=== PATIENT | female | born 1965 | race Caucasian/White ===

== ENCOUNTER 2021-10-14 13:47 | Inpatient (IN) | payer OTHER ==
[~2021-10-14] VITALS: Ht 165.1 cm; Wt 158.4 kg
--- NOTE | 2021-10-14 19:28 | NUR ---
PATIENT ARRIVED TO ROOM 338 PER W/C ACCOMPANIED BY TRANSPORT PLAS[facility] NURSE. PATIENT'S PRESENT ON ADMISSION TO ROOM. DR SCHUSTER PRESENT TO EXAMINE PATIENT.
[2021-10-14] MEDS ORDERED: ROXICODONE 55 MG/TAB PO (19:50)
[2021-10-14] MEDS ORDERED: NORVASC2.5 MG PO (19:50)
[2021-10-14] MEDS ORDERED: KEPPRA 500MG500 MG PO (19:50)
[2021-10-14] MEDS ORDERED: ARTIFICIAL TEAR15 M7 OP (19:51)
[2021-10-14] MEDS ORDERED: PROTONIX 40MG T40 MG PO (19:52)
[2021-10-14] MEDS ORDERED: ZOFRAN ODT4 MG PO (19:52)
[2021-10-14] MEDS ORDERED: MELATONIN5 M1 SL (19:52)
[2021-10-14] MEDS ORDERED: GLUCOPHAGE500 MG/TAB PO (19:52)
[2021-10-14 19:55] VITALS: BP 138/71; PULSE 57; TEMP 98.9
--- NOTE | 2021-10-14 22:56 | NUR ---
PATIENT ADMITS TO DIAGNOSIS OF SLEEP APNEA IN PAST. ADMITS TO DIAGNOSIS OF PREDIABETES AND CHECKING HER BLOOD SUGARS
--- NOTE | 2021-10-15 05:33 | NUR ---
Patient sleeping in recliner. Patients blood glucose was taken by this nurse and read 79. This nurse suggested that she drink juice and eat some peanut butter to combat the lower blood sugar. Patient requested grape juice despite saying that "things still taste funny" since her procedure, she denied anything to eat. Patient is tolerating oral fluids well. This nurse still offered peanut butter and crackers to the patient. Patient has no complaints at this time. Call light within reach.
[2021-10-15 05:42] VITALS: BP 115/64; PULSE 68; TEMP 97.8
--- NOTE | 2021-10-15 06:22 | NUR ---
ATTEMPTED TO INFORMED DR TANNER OF HOSPITALIST CONSULT FOR MEDICAL MANAGEMENT PER DR SCHUSTER WITH DR TANNER RECOMMENDING CALLING [facility]LEVEL CEASAR OF HOSPITALIST CONSULT. NO FURTHER ORDERS GIVEN.
--- NOTE | 2021-10-15 07:09 | NUR ---
CHANGE OF SHIFT REPORT GIVEN TO DAY SHIFT ANNETTE HURTADO.
--- NOTE | 2021-10-15 09:21 | NUR ---
Patient was up in recliner and c/o pain in head, back, shoulder, neck and mouth d/t the romeo in her head. Patient stated pain was 10/10 and this nurse told her she would give pain medication with morning meds. Call light and bedside table are within reach. Will continue to monitor patient throughout shift.
--- NOTE | 2021-10-15 10:26 | NUR ---
SW met with patient to complete intake. Patient states that she lives in [facility] with her Stevo [phone]. Patient provides that he is also appointed as her DPOA/HC. Patient states that she does not utilize a walker, but states she would probably benefit in obtaining one before she goes back to her home. Patient states that her PCP is Dr. Rodríguez and her pharmacy is [facility]. Patient provides that her plan is to return to her home upon DC and has no concerns or questions in that regards. SW will continue to follow. DC plan: home
[2021-10-15 17:24] VITALS: BP 135/72; PULSE 79; TEMP 97.2
--- NOTE | 2021-10-16 02:21 | NUR ---
PATIENT DOING WELL TONIGHT. ALERT AND ORIENTED. C/O MODERATE BACK AND HEAD PAIN BUT DENIES NEEDS FOR PAIN MEDS WHEN ASKED. AMBULATED TO BATHROOM WITH WALKER AND LAYING IN BED. CALL LIGHT WITHIN REACH.
[2021-10-16 05:04] VITALS: BP 110/62; PULSE 88; TEMP 97.7
--- NOTE | 2021-10-16 06:59 | NUR ---
Patient sleeping comfortably in recliner. Patient stated she did not order breakfast this morning because her is bringing her lunch. This nurse educated the patient on the importance of eating because of her diabetes. Patient was not receptive of the suggestion. Call light and bedside table are within reach. Will continue to monitor patient throughout shift.
--- NOTE | 2021-10-16 09:07 | NUR ---
This nurse dropped medication and to pull another oxycodone. Unable to find.
--- NOTE | 2021-10-16 11:54 | NUR ---
Patient's is at bedside and brought lunch. Discussed with about getting her to eat more and her blood glucose.
[2021-10-16 18:00] VITALS: BP 128/64; PULSE 90; TEMP 98
--- NOTE | 2021-10-16 19:10 | NUR ---
RECEIVED CHANGE OF SHIFT REPORT FROM DAY SHIFT RN.
--- NOTE | 2021-10-17 00:19 | NUR ---
PATIENT SLEEPIN WHILE UP IN CHAIR. STATES SHE MOSTLY SLEEPS SITTING IN HER RECLINER AT HOME. BREATHING NONLABORED, EXIT ALARM ON WITH CALL LIGHT WITHIN RECEACH.
[2021-10-17 05:27] VITALS: BP 121/70; PULSE 96; TEMP 98.2
--- NOTE | 2021-10-17 07:07 | NUR ---
CHANGE OF SHIFT REPORT GIVEN TO DAY SHIFT RNLALO.
--- NOTE | 2021-10-17 08:49 | NUR ---
RN WENT TO GIVE PATIENT MEDICATIONS, PATIENT SITTING UP IN CHAIR. PATIENT REPORTS SHE DID NOT SLEEP WELL LAST NIGHT AND HAD RESTLESS LEGS. PATIENT REPORTS SHE IS NOT FEELING WELL AND HAS HEADACHE/PAIN TO THE RIGHT ANABAPTIST AREA. PATIENT WAS GIVEN PAIN MEDICATION PRIOR TO HER PT IN ABOUT AN HOUR AND ASSISTED BACK TO BED TO REST TO ENSURE SHE IS READY FOR THERAPY. PATIENT REMINDED THAT SHE HAS PT IN ABOUT AN HOUR AND IS ALSO DUE TO SHOWER LATER TODAY WITH OT.
--- NOTE | 2021-10-17 14:15 | NUR ---
Admission QIM scores were reviewed by the team. Code of 5 chosen for eating was determined by team discussion to be the most usual performance for this patient during the assessment period. Code of 4 chosen for oral hygiene was determined by team discussion to be the most usual performance for this patient during the assessment period. Code of 3 chosen for toilet hygiene was determined by team discussion to be the most usual performance for this patient during the assessment period. Code of 2 chosen for shower/bathe self was determined by team discussion to be the most usual performance before interventions for this patient during the assessment period. Code of 3 chosen for upper body dressing was determined by team discussion to be the most usual performance before interventions for this patient during the assessment period. Code of 2 chosen for lower body dressing was determined by team discussion to be the most usual performance for this patient during the assessment period. Code of 4 chosen for sit to lying was determined by team discussion to be the most usual performance before interventions for this patient during the assessment period. Code of 88 chosen for lying to sitting on side of bed was determined by team discussion to be the most usual performance for this patient during the assessment period. Code of 88 for car transfer was determined by team discussion to be the most usual performance before interventions for this patient during the assessment period. Code of 88 chosen for walk 10 feet was determined by team discussion to be the most usual performance for this patient during the assessment period. Code of 88 chosen for walk 50 feet w/ 2 turns was determined by team discussion to be the most usual performance for this patient during the assessment period.--Sindhu Christian,
[2021-10-17 15:59] VITALS: BP 129/57; PULSE 86; TEMP 97.8
--- NOTE | 2021-10-17 16:06 | NUR ---
Linux Network Engineer met with patient to follow up from the weekend. Patient states she had a bad weekend, but was doing better today. SW discussed a family meeting with patient who only wants to include her , Stevo. SW contacted Stevo and scheduled the meeting for 10/19/21 at 1320.
--- NOTE | 2021-10-17 18:05 | NUR ---
PATIENT IS CURRENTLY RESTING IN CHAIR. PATIENT ATE MAJORITY OF HER DINNER WHICH IS A VAST IMPROVEMENT FROM THIS MORNING. PATIENT HAS BEEN COMPLAINING OF NOT FEELING WELL ALL DAY BUT HAS BEEN PUSHING HERSELF TO WORK WITH THERAPY AND SHE DID TAKE A SHOWER WITH OT WELL. PATIENT CONTINUES TO COMPLAIN OF HEADACHE/BLURRY VISION. PATIENT HAS BEEN GIVEN PAIN MEDICATION A FEW TIMES BUT HAS ALSO REFUSED IT SEVERAL TIMES, STATING "MY PAIN ISN'T THAT BAD AT THE MOMENT". PATIENT HAS BEEN ENCOURAGED TO WIPE SELF WHEN USING THE REST ROOM, EVEN IF IT TAKES LONGER AND TO DO THINGS FOR HERSELF SO THAT SHE IS ABLE TO GO HOME.
--- NOTE | 2021-10-17 22:38 | NUR ---
Received report from day shift. Patient here post resection/craniotomy. Patient alert and oriented. VSS. Assessment performed. Patient c/o headache, denies need for medication for pain. Patient requested to sleep in chair, states it helps her sleep better. Patient given PM meds. Patient resting in chair with call light near.
--- NOTE | 2021-10-18 03:46 | NUR ---
Patient awoke in pain rating it 7/10. Patient requested pain medication. Administered oxy. Will continue to monitor.
[2021-10-18 05:38] VITALS: BP 141/67; PULSE 94; TEMP 97.6
--- NOTE | 2021-10-18 06:07 | NUR ---
Patient up throughout the night complaining of aches and pains throughout her body. Patient was given pain medication and transferred to the bed and chair several times. Patient was unable to obtain good sleep. Will pass report on to day shift nurse.
[2021-10-18 16:38] VITALS: BP 132/69; PULSE 94; TEMP 98.3
--- NOTE | 2021-10-18 21:00 | NUR ---
Pt. sitting up in chair at this time. Pt. is A&OX3, assessment complete. [place] to scalp incision intact. Pt. reports headache pain at a 4 on pain scale, gave pain meds per orders. Pt. denies further needs, call light within reach. Chair alarm on.
[2021-10-19 05:39] VITALS: BP 132/73; PULSE 92; TEMP 98.5
--- NOTE | 2021-10-19 07:43 | NUR ---
REPORT RECEIVED FROM ANIMAL PARK CODE ENFORCEMENT OFFICER RN KIMBERLI. PATIENT RESTING COMFORTABLY IN BEDSIDE CHAIR
--- NOTE | 2021-10-19 11:02 | NUR ---
Head CT rescheduled for 11/01/21 at 10:00 with [facility] Neurosurgery ([place] location)
[2021-10-19 12:02] VITALS: BP 137/80; PULSE 87
--- NOTE | 2021-10-19 13:39 | NUR ---
Stacker Driver and SW student participated in family meeting which included patient's , Stevo by phone. MARIA ISABEL Manley Director opened the meeting and PT/OT/ST reviewed patient's progress. Patient appeared to be drowsy during the meeting, however stated that today is the day she is going to get to the bathroom and have a bowel movement. SW advised patient and Stevo that tentative discharge date is set for Sunday10/28/21 and recommendations for services will be decided closer to discharge. SW provided copy of team conference notes to patient.
[2021-10-19 17:48] VITALS: BP 130/73; PULSE 97; TEMP 97
--- NOTE | 2021-10-19 19:10 | NUR ---
RECEIVED CHANGE OF SHIFT REPORT FROM DAY SHIFT RN.
--- NOTE | 2021-10-19 21:30 | NUR ---
REFUSED SENOKOT. EXPRESSED THAT SHE IS ANGRY/UPSET "NOTHING IS WORKING" REFERRING TO NOT HAVING BM SINCE ADMIT ON 10/14. REPORTS APPETITE IS STILL NOT NORMAL, REPORTS "NOTHING TASTES GOOD". REPORTS THAT SHE CONTINUES TO DRINK GLUCERNA WHEN IT IS BROUGHT TO HER. REPORTS SHE IS "ALWAYS TIRED... I HURT EVERYWHERE... I'M HAVING STOMACH CRAMPS..." ADMITS TO PASSING FLATUS AND DENIES FEELING BLOATED.
--- NOTE | 2021-10-20 02:18 | NUR ---
AWAKING FROM SLEEPING IN CHAIR, UP TO BATHROOM, WANTING TO "SIT ON TOILET" ATTEMPTING TO PASS BM "IF ABLE".
[2021-10-20 04:55] VITALS: BP 122/73; PULSE 95; TEMP 98.1
--- NOTE | 2021-10-20 07:17 | NUR ---
CHANGE OF SHIFT REPORT GIVEN TO DAY SHIFT RNODALYS.
--- NOTE | 2021-10-20 07:41 | NUR ---
Shift report recevied from night assistant RN. Patient resting in chair at bedside. Call light is within her reach
--- NOTE | 2021-10-20 09:27 | NUR ---
Called [facility] to cancel and reschedule upcoming teleheath on 10/21 with Neuro and to clarify when scalp romeo should be removed. Neuro D/C Instructions state "Rehab Physician to remove stapes on 10/21/21" but thinks that romeo are to be removed on 10/25/21. Left a voice mail for Nurse Pemberton to return my phone call
--- NOTE | 2021-10-20 10:05 | NUR ---
Callback received from Nurse Pemberton at [facility] Neuro. Okay to remove romeo tomorrow. Telehealth appt scheduled for 10/21/21 has been canceled. Per Nurse Pemberton, pt. does not need to reschedule telehealth since romeo will be removed by IPR Physician tomorrow. Pt. needs to keep CT appt for 11/01/21 and keep f/u with Dr. Nash on 11/07/21
--- NOTE | 2021-10-20 14:39 | NUR ---
Admission QIM scores were reviewed by the team. Code of 3 chosen for oral hygiene was determined by team discussion to be the most usual performance for this patient during the assessment period. Code of 3 chosen for toilet hygiene was determined by team discussion to be the most usual performance for this patient during the assessment period. Code of 3 chosen for toileting transfers was determined by team discussion to be the most usual performance for this patient during the assessment period. Code of 3 chosen for shower/bathe self was determined by team discussion to be the most usual performance before interventions for this patient during the assessment period. Code of 3 chosen for upper body dressing was determined by team discussion to be the most usual performance before interventions for this patient during the assessment period. Code of 2 chosen for lower body dressing was determined by team discussion to be the most usual performance for this patient during the assessment period. Code of 3 chosen for sit to lying was determined by team discussion to be the most usual performance before interventions for this patient during the assessment period. Code of 2 chosen for lying to sitting on side of bed was determined by team discussion to be the most usual performance for this patient during the assessment period. Code of 3 for sit to stand was determined by team discussion to be the most usual performance for this patient during the assessment period. Code of 3 for chair/bed to chair transfers was determined by team discussion to be the most usual performance for this patient during the assessment period.--PD Uday
[2021-10-20 17:26] VITALS: BP 115/76; PULSE 95; TEMP 99.4
--- NOTE | 2021-10-20 19:30 | NUR ---
PT GETTING INTO BED. C/O HEADACHE LEVEL 8. SEE MAR FOR OXYCODONE GIVEN. NO CHANGE IN NEURO STATUS. PT MORBIDLY OBESE. NEEDS ENC FOR SELF CARES. FRONTAL HEAD INCISION WITH KENZIE CDI. CALL LIGHT IN REACH. BED ALARM SET.
--- NOTE | 2021-10-20 21:16 | NUR ---
PT TO BR THEN TO RECLINER. TELLING VERY DISCONNECTED STORIES ABOUT MOTHER AND COUSIN. PT RELATES SHE STILL HAS CLOUDY VISION. SEE MAR FOR EYE DROPS GIVEN.
--- NOTE | 2021-10-20 23:39 | NUR ---
PT SITTING UP IN RECLINER. C/O H/A FRONTAL. SEE MAR FOR OXYCODONE GIVEN.
--- NOTE | 2021-10-21 03:42 | NUR ---
PT AWAKE. AMB TO BR WITH WALKER WITH CGA. BACK TO BED. C/O H/A LEVEL 10 AFTER COUGHING. SEE MAR FOR OXYCODONE GIVEN. REPOSITIONED FOR COMFORT. CALL LIGHT IN REACH. BED ALARM SET.
[2021-10-21 03:48] VITALS: BP 138/91; PULSE 103; TEMP 99
[2021-10-21 12:56] LABS: BASO % 0.5 % (0.0-2.0); EOS % 0.7 % (0.0-4.0); GRAN # 2.4 K/mm3 (1.4-6.5); GRAN % 58.7 % (42.2-75.2); HEMOGLOBIN 11.3 g/dl (12.5-16.0); LYMPH # 1.3 K/mm3 (1.2-3.4); LYMPH % 30.7 % (20.0-51.0); MEAN CELL VOLUME 92 fl (80.0-100.0); MEAN CORPUSCULAR HEMOGLOBIN 31 pg (27-31); MEAN CORPUSCULAR HGB CONC 33 g/dl (33.0-37.0); MEAN PLATELET VOLUME 10.4 fl (7.4-10.4); MONO # 0.4 K/mm3 (0.1-0.6); MONO % 8.9 % (1.7-9.3); PLATELET COUNT 184 K/mm3 (130-400); RED BLOOD COUNT 3.69 M/mm3 (4.10-5.30); REDCELL DISTRIBUTION WIDTH-CV 15.2 % (11.5-14.5)
[2021-10-21 12:58] LABS: HEMATOCRIT 33.8 % (37.0-47.0)
[2021-10-21 13:11] LABS: C-REACTIVE PROTEIN 4.95 mg/dL (0.00-0.50); CALCIUM 8.8 mg/dL (8.4-10.2); CREATININE, serum 0.85 mg/dL (0.57-1.11)
--- NOTE | 2021-10-21 14:54 | NUR ---
Jumbo Operator met with patient to follow up prior to the weekend. Patient states she is in pain and is anxious to get her romeo out. Patient states she also has not been able to talk with her yet today. Patient has her eyes closed and would like to rest.
[2021-10-21 17:19] VITALS: BP 141/63; PULSE 105; TEMP 99.2
--- NOTE | 2021-10-21 20:30 | NUR ---
PT MORBIDLY OBESE. PT SITTING IN RECLINER WITH EYES CLOSED. ANSWERS QUESTIONS APPROPRIATELY BUT WITH A WHISPER. ENC PT TO SPEAK LOUDER. PT RELATES HEAD HURTS. SEE MAR FOR PAIN MED GIVEN. CALL LIGHT IN REACH. CHAIR ALAR SET.
--- NOTE | 2021-10-22 00:50 | NUR ---
PT UP FROM RECLINER TO BR. TRANSFERRED TO BED. PT COUGHING AND HAS SORE THROAT. C/O HEAD ACHE WITH COUGHING. SEE MAR FOR ROXICODONE GIVEN. WAITING FOR COUGH GTT FROM PHARMACY PER EMERGENCY MEDICAL TECH.
[2021-10-22 04:44] VITALS: BP 140/80; PULSE 102; TEMP 98.5
--- NOTE | 2021-10-22 14:24 | NUR ---
PATIENT HAS REMAINED IN STABLE CONDITION THROUGHOUT THIS SHIFT. PATIENT STILL REQUIRES MAX ENCOURAGMENT TO DO ANYTHING FOR HERSELF. FOOD INTAKE IS POOR. PATIENT SEEMS TO NOT BE WILLING TO COMPLETE ANY ADLS ON HER OWN. EXPLAINED TO HER THAT SHE NEEDS TO INCREASE FOOD AND FLUID INTAKE AND PUT FORTH MORE EFFORT IN GAINING STRENGTH BACK IN ORDER TO RETURN HOME. COUGH BEGAN TODAY, ORDERS RECIEVED. CONTINENT.
[2021-10-22 18:22] VITALS: BP 135/84; PULSE 111; TEMP 98.5
--- NOTE | 2021-10-22 20:53 | NUR ---
PT SITTING IN RECLINER. A&0X4. MORE TALKATIVE TONIGHT. STILL HAVING COUGH AND SORE THROAT. TAKING ROBITUSSIN WHICH HELPS AND LOZENGES. REMINDED PT TO CALL WHEN NEEDING TO GET UP. PT AGREED.
--- NOTE | 2021-10-23 02:36 | NUR ---
PT ASSISTED UP TO BR. C/O RT CHEST PAIN. MORE OF A MUSCLE ACHE. VSS. PT C/O BURNING WITH VOIDING. PLACED HAT IN TOILET TO CATCH NEXT URINE.
[2021-10-23 02:40] VITALS: BP 130/69; PULSE 110; TEMP 99.3
[2021-10-23 04:31] VITALS: BP 115/56; PULSE 89; TEMP 98.4
[2021-10-23 05:43] VITALS: BP 132/78; PULSE 100; TEMP 98.6
--- NOTE | 2021-10-23 09:59 | NUR ---
ASSISTED PATIENT BACK TO BED AFTER USING THE REST ROOM AND SHE STARTED TO CLUTCH HER CHEST AND C/O OF CHEST PAIN. CHARGE NURSE MADE AWARE. VITALS OBTAINED, ALL WITHIN NL. DR. ALICEA MADE AWARE, PT STATES CHESET PAIN IS WITH COUGH, PRN COUGH MEDICATION GIVEN. DR. ALICEA MADE AWARE. DR. ALICEA TO PUT IN ORDERS FOR EKG AND TROPONIN.
[2021-10-23 11:45] LABS: BASO % 0.3 % (0.0-2.0); EOS % 1.1 % (0.0-4.0); GRAN # 1.9 K/mm3 (1.4-6.5); GRAN % 53.1 % (42.2-75.2); HEMOGLOBIN 11.1 g/dl (12.5-16.0); LYMPH # 1.3 K/mm3 (1.2-3.4); LYMPH % 35.1 % (20.0-51.0); MEAN CELL VOLUME 94 fl (80.0-100.0); MEAN CORPUSCULAR HEMOGLOBIN 30 pg (27-31); MEAN CORPUSCULAR HGB CONC 32 g/dl (33.0-37.0); MEAN PLATELET VOLUME 10.3 fl (7.4-10.4); MONO # 0.3 K/mm3 (0.1-0.6); MONO % 9.3 % (1.7-9.3); PLATELET COUNT 189 K/mm3 (130-400); RED BLOOD COUNT 3.69 M/mm3 (4.10-5.30); REDCELL DISTRIBUTION WIDTH-CV 15.6 % (11.5-14.5)
[2021-10-23 11:46] LABS: HEMATOCRIT 34.5 % (37.0-47.0)
[2021-10-23 11:51] LABS: BLOOD UREA NITROGEN 14 mg/dL (10-20); CALCIUM 8.7 mg/dL (8.4-10.2); CARBON DIOXIDE 25 mmol/L (22-29); CREATININE, serum 0.94 mg/dL (0.57-1.11); GLUCOSE 103 mg/dL (70-99)
[2021-10-23 12:00] LABS: TROPONIN-I < 0.010 ng/mL (0.00-0.033)
[2021-10-23 12:02] LABS: ANION GAP 9 mmol/L (7-16); CHLORIDE 103 mmol/L (98-107); SODIUM 137 mmol/L (136-145)
[2021-10-23 15:46] VITALS: BP 131/74; PULSE 105; TEMP 99.6
[2021-10-23 16:14] LABS: COLLECTION METHOD CLEAN CATCH
[2021-10-23 16:24] LABS: MUCOUS Present (NOT PRESENT); PH 5 (5-8); SQUAMOUS EPITHELIAL 0-2 /hpf (0-10); URINE APPEARANCE Turbid (CLEAR/HAZY); URINE BACTERIA Moderate /hpf (NONE SEEN); URINE BILIRUBIN Negative (NEGATIVE); URINE BLOOD 3+ (NEGATIVE); URINE COLOR Amber (YELLOW); URINE GLUCOSE Negative (NEGATIVE); URINE KETONE 1+ (NEGATIVE); URINE LEUKOCYTE ESTERASE 2+ (NEGATIVE); URINE NITRATE Positive (NEGATIVE); URINE PROTEIN(semi-quant) 2+ (NEGATIVE); URINE RBC >50 /hpf (0-2); URINE UROBILINOGEN >=4.0 (NEGATIVE); URINE WBC >50 /hpf (0-2)
--- NOTE | 2021-10-23 17:00 | NUR ---
SPOKE WITH DR. ALICEA ABOUT PATIENT'S URINE RESULTS. HE WILL ENTER ORDERS FOR ABX AND URINE CULTURE.
--- NOTE | 2021-10-23 18:28 | NUR ---
PATIENT HAS BEEN DIFFICULT TO ENCOURAGE TO EAT TODAY. STATES THAT THE DOCTOR TOLD HER IF SHE DOESN'T WANT TO EAT, SHE DOESN'T HAVE TO. SHE STATES "NOTHING TASTES RIGHT. I DON'T WANT TO SEE OR SMELL ANYTHING" I WAS ABLE TO CONVINCE PT TO EAT ABOUT HALF OF A BROWNIE THAT CAME WITH HER DINNER TRAY. PT WAS C/O SORE BACK FROM SITTING UP IN THE CHAIR ALL DAY, SO I HELPED HER BACK TO BED AND REPOSITIONED HER IN THE BED FOR COMFORT.
--- NOTE | 2021-10-23 21:00 | NUR ---
SITTING IN RECLINER WITH EYES CLOSED. QUIET ONIGHT. DENIES NEED FOR PAIN MED OR COUGH SUPPRESSANT. REFUSED DUCLOOX SUPP SINCE IT HAS BEEN SEVERAL DAYS FOR A BM. DECLINED. PT REPORTS NOT WORRIED ABOUT HER BOELD. CALL LIGHT IN [facility]. CHAIR MELISSA GANNON.
--- NOTE | 2021-10-23 22:19 | NUR ---
SITTING IN RECLINER. NO NEEDS AT THIS TIME.
--- NOTE | 2021-10-24 00:24 | NUR ---
PT HAVING URINARY URGENCY AND FREQUENCY WITH UTI. GETTING OMNICELL.
[2021-10-24 05:27] VITALS: BP 123/82; PULSE 101; TEMP 98.5
--- NOTE | 2021-10-24 06:05 | NUR ---
COCCYX RED. BARRIER OINTMENT APPLIED. PT RETURN TO RECLINER AFTER BR. STILL HAVING FREQUENT VOIDS WITH BURNING.
--- NOTE | 2021-10-24 08:00 | NUR ---
ASSISTED PT FROM [facility] BACK TO BED. PT STATES THAT SHE DOES DOES NOT WANT TO EAT BREAKFAST. PT STATES THAT SHE "HURTS ALL OVER". PT STATES THAT SHE DOES NOT WANT ANYTHING. SHE JUST WANTS TO GET BACK INTO BED AND REST. CALL LIGHT IS WITHIN REACH.
--- NOTE | 2021-10-24 08:53 | NUR ---
PT OFF FLOOR TO THERAPY
--- NOTE | 2021-10-24 09:24 | NUR ---
PT RETURNED TO FLOOR WITH THERAPY.
--- NOTE | 2021-10-24 15:42 | NUR ---
Deputy Chief Magistrate met with patient to follow up after the weekend. Patient requested assistance with taking off her glasses and wanted to rest.
[2021-10-24 18:00] VITALS: BP 128/81; PULSE 103; TEMP 98
--- NOTE | 2021-10-24 18:33 | NUR ---
PT UP IN CHAIR. PT STATES NO NEEDS OR PAIN AT THIS TIME. CALL LIGHT IS WITHIN REACH.
--- NOTE | 2021-10-24 19:23 | NUR ---
RECEIVED CHANGE OF SHIFT REPORT FROM DAY SHIFT RN. EXIT ALARM ON WHEN UP IN CHAIR OR IN BED. CALL LIGHT WITHIN REACH.
[2021-10-25 05:07] VITALS: BP 115/55; PULSE 90; TEMP 97.1
--- NOTE | 2021-10-25 06:46 | NUR ---
CHANGE OF SHIFT REPORT GIVEN TO DAY SHIFT RNs, QI.
--- NOTE | 2021-10-25 07:34 | NUR ---
Shift report received from casino shift manager RN. Patient resting supine in bed with HOB elevated. Call light is within her reach
--- NOTE | 2021-10-25 13:02 | NUR ---
Patient sitting in bedside chair and reports that her back hurts. Patient repositioned to her bad at her request. Patient reporting that her mattress is not comfortable. Will trial and egg foam mattress for comfort
--- NOTE | 2021-10-25 14:05 | NUR ---
Patient has completed ST for the afternoon. Egg crate pad placed on the bed. Patient wanting to sit up in her wheelchair for awhile before laying down. Patient assisted (SBA) to her wheelchair. Denies further needs at this time. Call light is within her reach
[2021-10-25 16:22] VITALS: BP 116/90; PULSE 90; TEMP 98.2
--- NOTE | 2021-10-25 19:08 | NUR ---
RECEIVED CHANGE OF SHIFT REPORT FROM DAY SHIFT RNs.
--- NOTE | 2021-10-25 20:30 | NUR ---
PATIENT CALLED OUT TO NURSING REQUESTING ASSISTANCE GETTING OUT OF BED D/T EGG CRATE MATTRESS THAT PATIENT STATES SHE WAS TOLD SHE NEEDED TO HAVE IT ON HER BED. REQUIRED MIN ASSIST, PATIENT HOLDING ONTO NURSING STAFF'S HAND TO PULL ON INORDER TO MOVE HERSELF FROM MIDDLE OF BED CLOSER TO SIDE OF BED. PATIENT CONTINUES TO COMPLAIN OF BACK PAIN, ENCOURAGED TO TAKE PRN PAIN MEDS WITH PATIENT FINALLY AGREEING TO TAKE PAIN MEDS. PATIENT ALSO FREQUENTLY ENCOURAGED BY NURSING TO INCREASE NUTRITIONAL INTAKE WITH PATIENT STATING "NOTHING TASTES GOOD STILL". PATIENT ABLE TO GET UP PER SELF ONCE SHE WAS SITTING AT SIDE OF BED WITH NO FURTHER ASSISTANCE REQUESTED FROM NURSING.
--- NOTE | 2021-10-25 23:29 | NUR ---
PATIENT UP INDEPENDENTLY IN ROOM, CURRENTLY SLEEPING IN BED, DOES NOT WAKE WHEN DOOR TO ROOM IS OPENED BY NURSING ON ROUNDS. OBSERVED BREATHING NONLABORED.
[2021-10-26 05:13] VITALS: BP 111/56; PULSE 93; TEMP 98
--- NOTE | 2021-10-26 05:27 | NUR ---
PATIENT UP IN ROOM INDEPENDENTLY, CURRENTLY COMPLAINING OF NOT SLEEPING LAST NIGHT "AT ALL", HAVING PAIN "ALL OVER" THAT SHE FEELS "SICK TO MY STOMACH". PATIENT GIVEN SCHEDULED PROTONIX WITH PRN PAIN MED, SEE MAR.
--- NOTE | 2021-10-26 07:11 | NUR ---
CHANGE OF SHIFT REPORT GIVEN TO DAY SHIFT RNs, QI.
--- NOTE | 2021-10-26 07:18 | NUR ---
Shift report received from overnight babysitter RN. Patient laying supine in bed with HOB elevated approx 30 degrees. Patient is sleeping soundly. Call light is within her reach
--- NOTE | 2021-10-26 10:00 | NUR ---
LORENE per Dr. Templeton to DC patient's blood glucose
--- NOTE | 2021-10-26 16:29 | NUR ---
Nib Inspector met with patient to review and provide copy of team conference notes. SW reviewed discharge date of Sunday and patient stated she is ready to get home. SW discussed recommendation for Home Health services and patient stated she wanted to think about it. Patient did not feel that a home evaluation from OT was necessary. SW also discussed need for front wheeled walker and patient does not want FWW ordered from [facility]. Patient is agreeable to have FWW ordered from [facility]
[2021-10-26 17:43] VITALS: BP 117/71; PULSE 87; TEMP 98.7
--- NOTE | 2021-10-26 18:49 | NUR ---
Patient had multiple c/o and sources of pain such as back pain, numbness and tingling in both hands, rib pain, face pain on right side of face, and feet pain. This nurse explained she may be feeling aching in d/t therapy and using muscles she has not used in awhile. Patient did not agree and stated most of her pain is chronic. This nurse also talked to her about her diet. Patient was not receptive to either. Will continue to educate patient about her medical condition.
--- NOTE | 2021-10-26 19:02 | NUR ---
RECEIVED CHANGE OF SHIFT REPORT FROM DAY SHIFT RN.
[2021-10-27 05:49] VITALS: BP 126/85; PULSE 96; TEMP 98.3
--- NOTE | 2021-10-27 07:11 | NUR ---
Report received from primary operator RN. Patient is resting in her bed. Call light is within her reach.
--- NOTE | 2021-10-27 07:33 | NUR ---
CHANGE OF SHIFT REPORT GIVEN TO DAY SHIFT RNs, QI.
--- NOTE | 2021-10-27 12:15 | NUR ---
Patient up in recliner at bedside. Patient refused her lunch tray due to nausea. Patient does want to smell food. PRN Payam offered; patient declined. Patient reports feeling tired and wanting to sleep. Discussed the importance of nutrition and hydration with patient. Patient will think about trying to eat snack
--- NOTE | 2021-10-27 13:01 | NUR ---
Patient continues to report nausea. No vomiting. PRN Zofran offered and accepted. Patient will begin PT at 1300 today
--- NOTE | 2021-10-27 13:35 | NUR ---
Business Functional Analyst faxed referral/order for front wheeled walker to [facility] SW followed up with patient on Home Health. Patient does not think she wants it but will review Medicare.gov list of options with her hollis. SW advised patient that this is what is recommended.
--- NOTE | 2021-10-27 15:36 | NUR ---
Patient sitting up in recliner. She reports that nausea is better. She denies having pain. Encouraged patient to drink PO fluids provided in her room. Call light within her reach
[2021-10-27 16:01] VITALS: BP 138/80; PULSE 97; TEMP 98.6
--- NOTE | 2021-10-27 16:23 | NUR ---
Patient c/o shooting pain on the right side of her face. Patient stated pain has already come and gone. Will monitor patient throughout shift. Patient denied pain medication at this time.
--- NOTE | 2021-10-27 21:29 | NUR ---
PT MOD I IN ROOM. ENC PT TO CALL IF NEEDED. PT RESTING IN BED AT THIS TIME.
[2021-10-28 05:34] VITALS: BP 125/74; PULSE 91; TEMP 97.9
[2021-10-28] MEDS ORDERED: ZYRTEC 10MG10 MG PO (09:22)
[2021-10-28] MEDS ORDERED: NORVASC2.5 MG PO (09:23)
[2021-10-28] MEDS ORDERED: OMNICEF 300MG300 MG PO (09:23)
[2021-10-28] MEDS ORDERED: TYLENOL 325MG325 MG PO (09:25)
[2021-10-28] MEDS ORDERED: ZOLOFT 50MG50 MG PO (09:29)
[2021-10-28] MEDS ORDERED: PROTONIX 40MG T40 MG PO (09:32)
[2021-10-28] MEDS ORDERED: MIRALAX238G PO (09:32)
[2021-10-28] MEDS ORDERED: NORCO 325 MG-51 TAB PO (09:34)
--- NOTE | 2021-10-28 11:29 | NUR ---
PT IS DISCHARGED, LEAVES FLOOR VIA @ 1130, ACCOMPANIED BY BRETT WEINBERG. PT IS GOING HOME WITH SPOUSE. DISCHARGE EDUCATION ET INSTRUCTIONS GIVEN TO PT ET SPOUSE, BOTH DEMONSTRATE UNDERSTANDING, DENY FURTHER QUESTIONS. PERSONAL BELONGINGS ARE TAKEN BY PT'S TO THEIR CAR OUTSIDE.
--- NOTE | 2021-10-28 12:43 | NUR ---
LULI contacted Giorgio at [facility] to follow up on delivery for the FWW. Giorgio states that they would not be able to deliver the FWW until 11-1400, but that the patient and family could come and pick it up. LULI met with the patient to follow up on home health and preference. The patient states that she is not really interested in home health and has not even looked over the home health list that was given to her. LULI informed her of the benefits of home health. LULI also discussed doing outpatient PT/OT, if not interested in home health. The patient states that she would need to speak to her . The patient's , Stevo, then arrived to the patient's room. LULI reviewed the above with him. Stevo is also declining home health. He states that the patient did outpatient therapy at [facility] and that they would probably prefer that. LULI discussed how SW would make an appointment at [facility] for the outpatient PT/OT. The patient declined and states that they have other appointments they need to go to and they can make it on their own. LULI informed her that the doctor will write an order for outpatient PT/OT for them to have, when they do set up the outpatient PT/OT. Dr. Templeton, [facility] doctor, then entered the room. SW updated him on the patient's plan and asked for the outpatient PT/OT orders. LULI also addressed the FWW. The patient and her would prefer not to wait for it to be delivered an plan on going to [facility] on their way home to picker the FWW. The patient and her had no other questions for LULI. LULI updated Giorgio at [facility]. The patient discharged back home with her today, 10/28, with orders for outpatient PT/OT. No additional needs at this time.
--- NOTE | 2021-10-28 13:14 | NUR ---
Discharge QIM scores were reviewed by the team. Code of 6 for car transfer was determined by team discussion to be the most usual performance before interventions for this patient during the assessment period. Code of 6 chosen for walk 50 feet w/ 2 turns was determined by team discussion to be the most usual performance for this patient during the assessment period.--Sindhu Christian, PD
== END 2021-10-28 11:30 | disposition home or self-care (01) | DRG 949 ==
PROVIDERS: Internal Medicine; ADMIT Physical Medicine & Rehabilitation Sports Medicine
DX: Z48.811 Encounter for surgical aftercare following surgery on the nervous system (principal); Z68.44 Body mass index [BMI] 60.0-69.9, adult; N39.0 Urinary tract infection, site not specified; R26.89 Other abnormalities of gait and mobility; E66.01 Morbid (severe) obesity due to excess calories; R73.03 Prediabetes; R33.9 Retention of urine, unspecified; H53.8 Other visual disturbances; G89.29 Other chronic pain; K59.00 Constipation, unspecified; M79.661 Pain in right lower leg; R91.8 Other nonspecific abnormal finding of lung field; I10 Essential (primary) hypertension; G47.30 Sleep apnea, unspecified; Z79.84 Long term (current) use of oral hypoglycemic drugs; Z73.6 Limitation of activities due to disability; Z79.891 Long term (current) use of opiate analgesic; Z87.891 Personal history of nicotine dependence; Z79.899 Other long term (current) drug therapy; B96.20 Unspecified Escherichia coli [E. coli] as the cause of diseases classified elsewhere; F39 Unspecified mood [affective] disorder; R13.10 Dysphagia, unspecified; R63.0 Anorexia; R05.8 Other specified cough; J02.9 Acute pharyngitis, unspecified; R09.81 Nasal congestion; R07.9 Chest pain, unspecified
CPT/HCPCS: 99222; 99231-AI; 99232-AI; 99233-AI; A9284; J1644